=== PATIENT | female | born 1950 | race Caucasian/White ===

== ENCOUNTER → 2019-08-23 | Outpatient (CLI) | payer MEDICARE ==
[~2019-08-23] MED LIST: ACYC-114 PO; CALC600T4 PO; CHOL10003 PO; GLUC1TAB35 PO; LISI1TAB19 PO; MULT1TAB60 PO; OMEG-69 PO; POTA99TA14 PO; PSYL0.5227 PO; SIMV20TA19 PO; TURM538C PO; UBID100C41 PO
[2019-08-23 11:46] LABS: BASOPHILS # (AUTO) 0.03 x10^3/uL (0-0.1); BASOPHILS % (AUTO) 1 % (0-1); MD NO; NEUTROPHILS % (AUTO) 62 % (42-75); RED BLOOD COUNT 4.65 x10^6/uL (3.82-5.3); RED CELL DISTRIBUTION WIDTH 13.2 % (9.6-15.2)
[2019-08-23 11:53] LABS: INTERNATIONAL NORMALIZED RATIO 1.02 (0.93-1.1); PROTHROMBIN TIME 10.8 Seconds (9.6-11.5)
[2019-08-23 12:22] LABS: ANION GAP 8 mmol/L (5-15); CHLORIDE 104 mmol/L (98-107)
[2019-08-23 12:26] LABS: ALANINE AMINOTRANSFERASE 25 U/L (12-78); ALKALINE PHOSPHATASE 57 U/L (45-117); BILIRUBIN,TOTAL 0.8 mg/dL (0.2-1.0); CREATININE 1.29 mg/dL (0.55-1.02); TOTAL PROTEIN 7.7 g/dL (6.4-8.2)
[2019-08-23 14:19] LABS: EOSINOPHILS # (AUTO) 0.12 x10^3/uL (0-0.4); EOSINOPHILS % (AUTO) 2 % (1-7); LYMPHOCYTES # (AUTO) 1.54 x10^3/uL (1-3.4); LYMPHOCYTES % (AUTO) 29 % (22-44); MEAN CORPUSCULAR HEMOGLOBIN 31.4 pg (27.0-34.8); MEAN CORPUSCULAR HGB CONC 33.5 g/dL (32.4-35.8); MEAN CORPUSCULAR VOLUME 93.5 fL (80-100); MEAN PLATELET VOLUME 7.2 fL (7.4-10.4); MONOCYTES # (AUTO) 0.36 x10^3/uL (0.2-0.8); MONOCYTES % (AUTO) 7 % (2-9); NEUTROPHILS # (AUTO) 3.31 x10^3/uL (1.8-6.8); PLATELET COUNT 243 x10^3/uL (130-400)
== END | disposition home or self-care (01) ==
LOC: STAR 10:11
PROVIDERS: ATTEND Urology
DX: Z01.818 Encounter for other preprocedural examination (principal); N28.89 Other specified disorders of kidney and ureter
CPT/HCPCS: 36415; 80053; 85025; 85610; 85730; 87086; 93005

== ENCOUNTER 2019-09-01 05:49 | Observation (INO) | payer MEDICARE ==
[~2019-09-01] VITALS: Ht 160 cm; Wt 74.4 kg
[2019-09-01] MEDS: HYDROmorphone 2 MG/ML, 1ML IVPush PRN ×2 (00:35→11:45)
[2019-09-01] MEDS ORDERED: LACTATED RINGERS 1,000 ML IV SCH (06:10)
[2019-09-01] MEDS ORDERED: BUPIVACAINE/PF 0.25% ONE (06:51)
[2019-09-01] MEDS ORDERED: INDIGO CARMINE 0.8%, 5ML ONE (06:52)
[2019-09-01] MEDS ORDERED: EPINEPHRINE 1 MG/ML, 1ML ONE (06:52)
[2019-09-01] MEDS ORDERED: FENTANYL PF 250 MCG/5ML ONE (07:12)
[2019-09-01] MEDS ORDERED: PROPOFOL 10 MG/ML, 20ML ONE (07:12)
[2019-09-01] MEDS ORDERED: SCOPOLAMINE 1MG PATCH TD ONE (07:12)
[2019-09-01] MEDS ORDERED: MIDAZOLAM 1 MG/ML, 2ML ONE (07:12)
[2019-09-01] MEDS ORDERED: CEFAZOLIN 1,000 MG ONE ×2 (07:12)
[2019-09-01] MEDS ORDERED: ROCURONIUM 10MG/ML,5ML ONE ×2 (07:13→08:32)
[2019-09-01] MEDS ORDERED: LIDOCAINE-MPF 2% ,5ML ONE (07:13)
[2019-09-01] MEDS ORDERED: DEXAMETHASONE 4 MG/ML, 1ML ONE ×2 (07:13)
[2019-09-01] MEDS ORDERED: METOCLOPRAMIDE 5 MG/ML, 2ML ONE (07:13)
[2019-09-01] MEDS ORDERED: ONDANSETRON 2MG/ML, 2ML ONE (07:13)
[2019-09-01] MEDS ORDERED: PHENYLEPHRINE 10 MG/ML ONE ×2 (07:13)
[2019-09-01] MEDS ORDERED: SCOPOLAMINE 1MG PATCH TD SCH (07:30)
[2019-09-01] MEDS ORDERED: PROPOFOL 50 ML ONE ×2 (08:21→09:37)
[2019-09-01] MEDS ORDERED: LABETALOL 5MG/ML, 20ML IV PRN (08:30)
[2019-09-01] MEDS ORDERED: KETOROLAC 30 MG/1 ML IV PRN (08:30)
[2019-09-01] MEDS ORDERED: ONDANSETRON 2MG/ML, 2ML IV PRN ×2 (08:30→13:00)
[2019-09-01] MEDS ORDERED: OXYcodone 5 MG/5 ML ORAL.SOL UDC PO PRN (08:30)
[2019-09-01] MEDS ORDERED: ACETAMINOPHEN 325 MG TABLET PO PRN (08:30)
[2019-09-01] MEDS ORDERED: hydrALAzine 20 MG/ML, 1ML IV PRN (08:30)
[2019-09-01] MEDS ORDERED: NEOSTIGMINE 1 MG/ML, 10ML ONE (10:12)
[2019-09-01] MEDS ORDERED: GLYCOPYRROLATE 0.2MG/1ML, 5ML ONE (10:12)
[2019-09-01] MEDS ORDERED: FENTANYL PF 100 MCG/2ML ONE (11:04)
[2019-09-01] MEDS: FENTANYL PF 100 MCG/2ML IV PRN ×4 (11:05→11:20)
[2019-09-01] MEDS ORDERED: OXYcodone 5 MG/5 ML ORAL.SOL UDC ONE ×2 (11:19→11:31)
[2019-09-01] MEDS ORDERED: HYDROmorphone 1 MG/ML, 1ML INJ ONE (11:34)
[2019-09-01] MEDS ORDERED: morphine SULFATE 10 MG/ML, 1ML IV PRN (13:00)
[2019-09-01] MEDS ORDERED: METHOCARBAMOL 1,000 MG in DEXTROSE 5% 100 ML IV ONE (14:00)
[2019-09-01] MEDS: CEFAZOLIN PMX 1GM/50ML 50 ML IVPB SCH ×2 (15:47→22:54)
[2019-09-01] MEDS: D5%-0.9% NACL+KCL 20MEQ 1,000 ML IV SCH (15:49)
[2019-09-01 19:36] VITALS: BP 124/71
[2019-09-01] MEDS: HYDROcodone/APAP 5/325 TABLET PO PRN (19:36)
[2019-09-01] MEDS ORDERED: SIMVASTATIN 20 MG TABLET PO SCH (21:00)
[2019-09-02] MEDS: D5%-0.9% NACL+KCL 20MEQ 1,000 ML IV SCH (01:52)
[2019-09-02] MEDS: HYDROcodone/APAP 5/325 TABLET PO PRN ×3 (01:59→13:31)
[2019-09-02 02:02] VITALS: BP 122/60
[2019-09-02 05:15] LABS: ANION GAP 6 mmol/L (5-15); CALCIUM 8.1 mg/dL (8.5-10.1); CHLORIDE 108 mmol/L (98-107)
[2019-09-02 06:35] VITALS: BP 109/62
[2019-09-02] MEDS ORDERED: OMEGA-3/FISH OIL CAPSULE PO SCH (09:00)
[2019-09-02] MEDS ORDERED: LISINOPRIL 20 MG TABLET PO SCH (09:00)
[2019-09-02] MEDS ORDERED: CHOLECALCIFEROL 1,000 UNIT TABLET PO SCH ×2 (09:00)
[2019-09-02] MEDS ORDERED: CALCIUM CARBONATE 500 MG TAB.CHEW PO SCH (09:00)
[2019-09-02] MEDS ORDERED: HYDROCHLOROTHIAZIDE 12.5 MG CAPSULE PO SCH (09:00)
[2019-09-02] MEDS ORDERED: MULTIVITAMIN 1 TABLET PO SCH (09:00)
[2019-09-02] MEDS ORDERED: POTASSIUM GLUCONATE 99 MG HOMEMEDPO SCH (09:00)
[2019-09-02] MEDS ORDERED: CALCIUM POLYCARBOPHIL 625 MG TABLET PO SCH (09:00)
[2019-09-02] MEDS ORDERED: HYDR-3237 PO (09:08)
== END 2019-09-02 14:15 | disposition home or self-care (01) ==
LOC: OUT 05:49 → 4NE 12:34 → OUT 23:24 → DCLOUNGE 09-02 14:02
PROVIDERS: ADMIT Urology; ATTEND Urology
DX: N28.89 Other specified disorders of kidney and ureter (principal); I10 Essential (primary) hypertension; E78.5 Hyperlipidemia, unspecified; Z87.891 Personal history of nicotine dependence; Z87.448 Personal history of other diseases of urinary system
CPT/HCPCS: 36415; 50543; 80048; 82570; 85014; 85018; 86850; 86900; 88305; 96365; 96366; C1729; C1760; G0378; J0171; J0690; J1100; J1170; J2250; J2405; J2704; J2710; J2765; J3010; J3480; J3490; J7120; J2370